=== PATIENT | female | born 1995 | race Two or more races ===

== ENCOUNTER 2022-07-13 07:27 | Emergency (ER) | payer MEDICAID, OTHER ==
[~2022-07-13] VITALS: Ht 157.5 cm; Wt 60.0 kg
[2022-07-13 08:21] VITALS: BP 116/75
[2022-07-13] MEDS ORDERED: LIDO2SOL23 MT (08:49)
[2022-07-13] MEDS ORDERED: AZIT250T8 PO (08:49)
== END 2022-07-13 09:02 | disposition home or self-care (01) ==
LOC: ER 07:27
DX: J03.90 Acute tonsillitis, unspecified (principal)
CPT/HCPCS: 93005

== ENCOUNTER 2023-07-16 07:04 | Emergency (ER) | payer MEDICAID ==
[~2023-07-16] VITALS: Ht 157.5 cm; Wt 59.0 kg
[~2023-07-16 07:04] MED LIST: AZIT-81 PO; LIDO2SOL26 MT
[2023-07-16 07:42] LABS: Basophils # (auto) 0 10 ^3/uL (0-0.2); Eosinophils # (auto) 0.2 10 ^3/uL (0-0.8); Monocytes # (auto) 0.4 10 ^3/uL (0-1.3); Monocytes % (auto) 7.6 % (0.0-12.0); Red Cell Distribution Width 13.8 % (11.8-14.3)
[2023-07-16 07:43] LABS: Basophils % (auto) 0.7 % (0.0-2.0); Eosinophils % (auto) 3.2 % (0.0-7.0); Hematocrit 42.4 % (36.0-46.0); Hemoglobin 13.7 g/dL (12.2-16.2); Lymphocytes % (auto) 39.9 % (10.0-50.0); Mean Corpuscular Hemoglobin 26.4 pg (28.0-32.0); Mean Corpuscular Hgb Conc. 32.4 g/dL (32.0-36.0); Mean Corpuscular Volume 81.3 fL (80.0-100.0); Neutrophils # (auto) 2.4 10 ^3/uL (1.6-8.6); Neutrophils % (auto) 48.6 % (37.0-80.0); Nucleated Red Blood Cells % 0.1 %; Red Blood Cells 5.21 10^6/uL (4.0-5.20)
[2023-07-16 07:52] LABS: Alanine Aminotransferase 20 U/L (7-40); Albumin 4.8 g/dL (3.2-4.8); Alkaline Phosphatase 59 U/L (46-116); Anion Gap 7 (5-15); Aspartate Aminotransferase 13 U/L (13-40); Bilirubin, Total 0.6 mg/dL (0.2-1.0); Blood Urea Nitrogen 9 mg/dL (9-23); Calcium 9.2 mg/dL (8.7-10.4); Carbon Dioxide 23 mmol/L (20-30); Chloride 110 mmol/L (98-107); Glucose 94 mg/dL (74-106); Magnesium 2.1 mg/dL (1.6-2.6); Potassium 4.2 mmol/L (3.5-5.1); Sodium 140 mmol/L (136-145); Total Protein 6.7 g/dL (5.7-8.2)
[2023-07-16 07:55] LABS: INR 1.04 (0.9-1.15); Partial Thromboplastin Time 28.6 SEC (24.5-34.5); Prothrombin Time 10.9 sec (9.3-11.8)
[2023-07-16 08:00] VITALS: BP 137/80; RESP 16; TEMP 98.1; O2SAT 97
[2023-07-16] MEDS ORDERED: METH4PAK PO (08:07)
[2023-07-16] MEDS ORDERED: ALBUAER3 IN (08:07)
[2023-07-16 08:08] VITALS: PULSE 80
== END 2023-07-16 08:15 | disposition home or self-care (01) ==
LOC: ER 07:04
DX: J40 Bronchitis, not specified as acute or chronic (principal); R10.2 Pelvic and perineal pain; R07.89 Other chest pain; Z79.899 Other long term (current) drug therapy
CPT/HCPCS: 36415; 71045; 80053; 83690; 83735; 83880; 84484; 84702; 85025; 85610; 85730; 93005